=== PATIENT | male | born 1945 | race Caucasian/White ===

== ENCOUNTER 2016-11-07 10:49 | Observation (INO) | payer MEDICARE, MEDICAID ==
[2016-11-07 11:48] LABS: Hematocrit 39 % (42-52); Hemoglobin 13.3 g/dl (14.0-18.0); Mean Corpuscular HGB Conc 34 g/dl (31-36); Mean Corpuscular Hemoglobin 30 pg (27-31); Mean Corpuscular Volume 87 fL (80-94); Mean Platelet Volume 9 um3 (7.4-10.4); Red Cell Distribution Width 14 % (10.5-15); White Blood Count 8.5 10^3/ul (3.5-10.8)
--- NOTE | 2016-11-07 12:00 | RAD ---
HISTORY: Hypertension COMPARISONS: June 04, 2016 VIEWS:1: Single frontal portable view of the chest at 11:11 FINDINGS: LINES AND TUBES: None. CARDIOMEDIASTINAL SILHOUETTE: The cardiomediastinal silhouette is normal for portable technique. PLEURA: The costophrenic angles are sharp. No pleural abnormalities are noted. LUNG PARENCHYMA: The lungs are clear. ABDOMEN: The upper abdomen is clear. There is no subphrenic gas. BONES AND SOFT TISSUES: The patient is status post left shoulder arthroplasty IMPRESSION: NO ACTIVE CARDIOPULMONARY DISEASE.
[2016-11-07] MEDS ORDERED: oxyCODONE TAB* 5 MG TAB PO ONE (12:38)
[2016-11-07] MEDS ORDERED: NS 0.9% 1000 ML* 2,000 ML IV ONE (12:53)
[2016-11-07 12:57] LABS: Urine Bilirubin Negative (Negative); Urine Glucose Negative (Negative); Urine Nitrite Negative (Negative)
[2016-11-07 13:36] LABS: BUN/Creatinine Ratio 24.5 (8-20); Calcium 9.7 mg/dL (8.6-10.3); EGFR Non-African American 79.3 (>60); Globulin 2.3 g/dL (2-4); Potassium 3.9 mmol/L (3.5-5.0); Total Bilirubin 0.5 mg/dL (0.2-1.0); Total Protein 6.3 g/dL (6.4-8.9)
[2016-11-07 13:38] LABS: Troponin I 0.01 ng/mL (<0.04)
[2016-11-07] MEDS ORDERED: Iohexol 300* (CONTRAST) 10 ML SDV IV ONE (13:43)
--- NOTE | 2016-11-07 13:59 | RAD ---
HISTORY: disequilibrium COMPARISONS: MRI of the head dated August 04, 2004 TECHNIQUE: Multiple contiguous axial CT scans were obtained of the head without intravenous contrast. FINDINGS: HEMORRHAGE/INFARCT: There is no hemorrhage or acute infarct. MASSES/SHIFT: There is no mass or shift. EXTRA-AXIAL SPACES: There are no extra-axial fluid collections. SULCI AND VENTRICLES: The sulci and ventricles are normal in size and position for the patient's stated age. CEREBRUM: There are no focal parenchymal abnormalities. BRAINSTEM: There are no focal parenchymal abnormalities. CEREBELLUM: There are no focal parenchymal abnormalities. VESSELS: The vessels are grossly normal. PARANASAL SINUSES: The paranasal sinuses are clear. ORBITS: The orbits are unremarkable. BONES AND SOFT TISSUE: No bone or soft tissue abnormalities are noted. OTHER: None IMPRESSION: NO ACUTE INTRACRANIAL PATHOLOGY.
--- NOTE | 2016-11-07 14:15 | RAD ---
INDICATION: Left lower quadrant pain COMPARISON: CT abdomen June 15, 2016; CT abdomen and pelvis March 06, 2016 TECHNIQUE: Axial source images were obtained from the hemidiaphragms to the symphysis pubis following administration of oral and intravenous contrast. 80 mL Omnipaque 300 was utilized. Coronal and sagittal reconstructed images were acquired. Lung bases: The lung bases are clear. Liver: The liver is normal in size. There are no new masses. There are multiple, stable, hepatic hypodensities likely representing cysts. There is no ductal dilatation. Gallbladder: There are no calcified gallstones. There is no evidence of wall thickening or pericholecystic fluid. Spleen: The spleen is normal in size. There are no masses. Pancreas: There is no focal pancreatic mass or ductal dilatation. Adrenal glands: There are findings suggestive of bilateral adrenal hyperplasia. The appearance unchanged. Kidneys: The kidneys are normal in size and position. There are prompt nephrograms and there is prompt excretion bilaterally. There are bilateral parapelvic cysts. There is no evidence of nephrolithiasis. Adenopathy: There is no evidence of adenopathy by size criteria. Fluid collections: There are no free or localized fluid collections. Vessels:There are atherosclerotic changes involving the aorta and iliac vessels. There is no focal aneurysm. The IVC appears normal. GI tract: There are no CT abnormality upper GI tract. There is moderate stool throughout the colon. There is no evidence of acute inflammatory change. There is appendectomy by surgical history. Pelvic organs: The prostate is enlarged Bladder: There are no bladder masses. Abdominal and pelvic soft tissues: The extraperitoneal abdominal and pelvic soft tissues appear normal.. Osseous structures: There is degenerative spurring of the thoracolumbar spine with lumbar fusion at L4-L5. There is no acute bony change. Other: None IMPRESSION: 1. Suspect mild, bilateral adrenal hyperplasia, unchanged. 2. Parapelvic cysts. 3. Moderate retained stool 4. Prostatic enlargement. 5. Lumbar fusion L4-L5. Underlying osteoarthritis.
[2016-11-07] MEDS ORDERED: Ondansetron INJ* 2 MG/ML VIAL IV PRN (15:47)
[2016-11-07] MEDS ORDERED: Polyethylene Glycol 3350* 17 GM PACKET PO PRN (15:50)
[2016-11-07] MEDS ORDERED: Metoclopramide TAB* 10 MG PO PRN (15:50)
[2016-11-07] MEDS ORDERED: tiZANidine TAB* 2 MG PO PRN (15:50)
[2016-11-07] MEDS: NS 0.9% 1000 ML* 1,000 ML IV SCH (16:07)
[2016-11-07 16:32] LABS: C Reactive Protein 3.65 mg/L (< 5.00)
[2016-11-07 17:27] LABS: Erythrocyte Sed Rate 8 mm/Hr (0-40)
[2016-11-07] MEDS: oxyCODONE TAB* 5 MG TAB PO PRN ×2 (18:17→22:33)
[2016-11-07 20:14] LABS: Benzodiazepine Urine Screen None Detected (None Detect)
[2016-11-07] MEDS: Omeprazole CAP* 20 MG PO SCH (20:55)
[2016-11-07] MEDS: Heparin VIAL(*) 5000 UNITS/ML VIAL (FIVE THOUSAND) SUBCUT SCH (20:55)
[2016-11-07] MEDS ORDERED: ALPRAZolam TAB* 0.5 MG PO SCH (21:00)
[2016-11-08] MEDS ORDERED: Acetaminophen TAB* 325 MG PO PRN (00:07)
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
[2016-11-08] MEDS: NS 0.9% 1000 ML* 1,000 ML IV SCH (05:27)
[2016-11-08] MEDS: Omeprazole CAP* 20 MG PO SCH (07:42)
[2016-11-08] MEDS: oxyCODONE TAB* 5 MG TAB PO PRN (07:43)
[2016-11-08 08:53] VITALS: BP 132/76
[2016-11-08] MEDS ORDERED: Multivitamins/Minerals TAB PO SCH (09:00)
[2016-11-08] MEDS ORDERED: amLODIPine TAB* 5 MG PO SCH (09:00)
[2016-11-08] MEDS ORDERED: Diazepam TAB(*) 2 MG PO ONE (09:09)
[2016-11-08] MEDS: Heparin VIAL(*) 5000 UNITS/ML VIAL (FIVE THOUSAND) SUBCUT SCH (09:49)
--- NOTE | 2016-11-08 11:29 | RAD ---
HISTORY: History of melanoma, off balance COMPARISONS: August 04, 2004, CT of the head dated November 07, 2016, maxillofacial CT dated May 01, 2011 TECHNIQUE: The following sequences were obtained of the head: Sagittal T1-weighted images, axial T2-weighted images, axial FLAIR images, axial susceptibility weighted images, axial T1-weighted images. Additionally, axial diffusion-weighted images were obtained with calculated apparent diffusion coefficients. FINDINGS: HEMORRHAGE/INFARCT: There is no hemorrhage or acute infarct. MASSES/SHIFT: There is no mass or shift. EXTRA-AXIAL SPACES/MENINGES: There are no extra-axial fluid collections. SULCI AND VENTRICLES: The sulci and ventricles are normal in size and position for the patient's stated age. CEREBRUM: There are multiple scattered small foci of elevated T2/FLAIR signal within the periventricular and subcortical white matter. These have progressed when compared to 2004. There is a small focus of susceptibility artifact within the right parietal lobe. A similar small focus is noted in the left posterior temporal lobe BRAINSTEM: There are no focal parenchymal abnormalities. CEREBELLUM: There are no focal parenchymal abnormalities. The cerebellar tonsils are normal in size and position. SELLA: The sella is normal. PINEAL: The pineal region is clear. CP ANGLE/TEMPORAL BONES: The labyrinthine structures are grossly normal. VESSELS: Normal flow-voids are noted within the visualized vertebral vasculature. DIFFUSION ABNORMALITIES: There are no diffusion abnormalities. PARANASAL SINUSES/MASTOIDS: The paranasal sinuses are clear. There is a trace right mastoid effusion. There is high signal on T2 and FLAIR images within the right petrous apex. When compared to previous CT examinations, this appears to correspond to fluid within pneumatized petrous apical air cells. ORBITS: The orbits are unremarkable. BONES AND SOFT TISSUE: No bone or soft tissue abnormalities are noted. OTHER: None IMPRESSION: 1. THERE ARE MULTIPLE FOCI OF ELEVATED T2/FLAIR SIGNAL WITHIN THE PERIVENTRICULAR AND SUBCORTICAL WHITE MATTER. THESE HAVE PROGRESSED WHEN COMPARED TO THE 2004 EXAMINATION. THE DIFFERENTIAL INCLUDES CHRONIC SMALL VESSEL ISCHEMIA, WHITE MATTER CHANGES ASSOCIATED WITH MIGRAINE HEADACHE, AND THE SEQUELA OF PREVIOUS INFECTION OR INFLAMMATION. ALSO WITHIN THE DIFFERENTIAL ARE AREAS OF VASOGENIC EDEMA FROM SMALL METASTATIC FOCI, GIVEN THE HISTORY OF MALIGNANCY. CONSIDER FURTHER EVALUATION WITH POSTCONTRAST MRI WHICH MAY BE MORE SENSITIVE TO THE DETECTION OF SMALL PARENCHYMAL METASTASES. 2. THERE IS NO SPACE-OCCUPYING LESION OR SHIFT. 3. THERE IS A SMALL RIGHT MASTOID EFFUSION, WITH FLUID WITHIN PNEUMATIZED PETROUS APICAL AIR CELLS ON THE RIGHT. 4. SMALL FOCI OF SUSCEPTIBILITY ARTIFACT WHICH MAY REFLECT SMALL CAVERNOUS ANGIOMAS OR FOCI OF MICROHEMORRHAGE, WHICH CAN BE SEEN IN ASSOCIATION WITH CHRONIC HYPERTENSION.
--- NOTE | 2016-11-08 15:25 | PN ---
Subjective Date of Service: 11/08/16 Interval History: Pt is feeling ok. He states he has not had any further lightheadedness. He denies any pain. No SOB. He is discouraged that we have not found a cause for his weight loss. Objective Vital Signs 11/07/16 11/07/16 11/07/16 15:24 16:52 18:17 Temperature 98.1 F Pulse Rate 57 Respiratory 16 16 16 Rate Blood Pressure 154/82 (mmHg) O2 Sat by Pulse 99 Oximetry 11/07/16 11/07/16 11/07/16 20:00 20:12 20:15 Temperature 98.0 F 98 F Pulse Rate 71 78 Respiratory 18 18 Rate Blood Pressure 153/75 135/81 (mmHg) O2 Sat by Pulse 96 96 97 Oximetry 11/07/16 11/07/16 11/07/16 20:17 20:55 22:33 Temperature Pulse Rate Respiratory 16 16 16 Rate Blood Pressure (mmHg) O2 Sat by Pulse Oximetry 11/07/16 11/07/16 11/08/16 22:55 23:59 00:33 Temperature 98.1 F Pulse Rate 65 Respiratory 16 16 16 Rate Blood Pressure 127/74 (mmHg) O2 Sat by Pulse 97 Oximetry 11/08/16 11/08/16 11/08/16 04:12 07:31 07:43 Temperature 97.7 F 98.6 F Pulse Rate 60 70 Respiratory 16 20 20 Rate Blood Pressure 130/74 144/90 (mmHg) O2 Sat by Pulse 97 Oximetry 11/08/16 11/08/16 11/08/16 08:53 09:43 09:57 Temperature Pulse Rate 56 Respiratory 18 16 16 Rate Blood Pressure 132/76 (mmHg) O2 Sat by Pulse 97 Oximetry Oxygen Devices in Use Now: None Appearance: Elderly male sitting on the edge of the bed eating lunch in NAD Eyes: No Scleral Icterus Ears/Nose/Mouth/Throat: Mucous Membranes Moist Respiratory: Symmetrical Chest Expansion and Respiratory Effort, Clear to Auscultation Cardiovascular: NL Sounds; No Murmurs; No JVD, RRR, No Edema Abdominal: NL Sounds; No Tenderness; No Distention Extremities: No Clubbing, Cyanosis Skin: No Rash or Ulcers, No Nodules or Sclerosis Neurological: Alert and Oriented x 3 Result Diagrams: 11/07/16 11:20 11/07/16 11:20 Assess/Plan/Problems-Billing Mr Markham is a 71 yo M who has a h/o HTN, chronic pain and 25-30lb unexplained weight loss over the last 10 months presented to the ER with c/o hypotension at his PCPs office and had a near syncopal episode while checking into the ER. - Patient Problems (1) Near syncope Status: Acute Comment: The patient was mildly orthostatic. No significant arrhythmias on tele. I suspect his near syncope was likely orthostatic in nature. (2) Unexplained weight loss Status: Acute Code(s): R63.4 - ABNORMAL WEIGHT LOSS SNOMED Code(s): 083718969 Comment: The patient has lost 25-30lb over the last 10 months. He has had an extensive work up as an outpatient. He has a h/o melanoma and a feeling of being off balance therefore I obtained an MRI of the brain without contrast ( could not get contrasted scan as he had CT with contrast 11/07/16). The MRI revealed white matter changes that in the differential includes small areas of edema related to small metastases and a contrasted MRI is recommended. I suspect this is not the case and the patient would like to go home. I will contact his PCP to discuss these findings and ask that she order a contrasted MRI for next week. Additionally the patient had c/o extreme fatigue/exhuastion so I had a nocturnal desaturation study performed that revealed him to desat for 20 mins. I have set him up for nocturnal O2 but he should have a formal sleep study as an outpatient. (3) HTN (hypertension) Status: Acute Code(s): I10 - ESSENTIAL (PRIMARY) HYPERTENSION SNOMED Code(s) : 25004888 Comment: I have resumed the patient's usual meds except chlorthalidone which I have asked the patient to discontinue. BP has been under good control. (4) DVT prophylaxis Status: Acute Code(s): WYF9295 - SNOMED Code(s): 729184543 Comment: SQ heparin. (5) Full code status Status: Acute Code(s): Z78.9 - OTHER SPECIFIED HEALTH STATUS SNOMED Code(s) : 841287957 Status and Disposition: d/c home
--- NOTE | 2016-11-09 15:34 | DS ---
DISCHARGE SUMMARY: DATE OF ADMISSION: 11/07/16 DATE OF DISCHARGE: 11/08/15 PRIMARY CARE PROVIDER: NAYELI Valenzuela PRINCIPAL DIAGNOSES: 1. Near syncope. 2. Hypotension - resolved. 3. 25-to 30-pound unexplained weight loss. DISCHARGE MEDICATIONS: 1. Reglan 5 mg p.o. t.i.d. p.r.n. nausea. 2. Omeprazole 20 mg p.o. b.i.d. 3. Multivitamin 1 tab p.o. daily. 4. Amlodipine 10 mg p.o. daily. 5. Tizanidine 4 mg p.o. q.6 hours p.r.n. spasm. 6. Xanax 0.5 mg p.o. at bedtime. 7. EpiPen daily as needed for allergic reaction. 8. Probiotic 4 mg p.o. daily. 9. MiraLAX 17 g p.o. daily p.r.n. constipation. 10. Oxycodone 15 mg p.o. q.4 hours p.r.n. pain. HOSPITAL COURSE: Mr. Markham is a 71-year-old male sent to the emergency room from his primary care provider's office with complaints of hypotension. While the patient was walking from the far end of the parking lot to the check-in desk at the emergency room, the patient felt lightheaded. By the time he arrived at the check- in desk, he felt as if he might pass out. The patient lost his balance with that. The patient was admitted for evaluation of near syncope. His blood pressure, however, was noted to be completely normal during the course of his emergency room stay. The patient was, however, admitted for evaluation of the near syncope and unexplained weight loss. In terms of the near syncope, I suspect this is likely orthostatic. The patient was mildly orthostatic. He was hydrated with IV fluids. He was feeling better on the day of discharge. He has had no other further near syncopal episodes. In terms of the unexplained weight loss, the patient did relate a history of melanoma in the past. Given this and his complaints of being off balance intermittently, I decided to obtain an MRI. I wished to obtain an MRI with contrast; however, the patient had contrast for an abdominal pelvis CT. Because of this, the patient had to wait 48 hours for a contrasted MRI. The decision was made to do a noncontrasted MRI, which revealed multiple foci of elevated T2/FLAIR signal within the periventricular and subcortical white matter. These are progressed when compared to 2004 examination. The differential includes chronic small-vessel ischemia, white matter changes associated with migraine headache, and the sequela of previous infection or inflammation. Also within the differential are areas of vasogenic edema from small metastatic foci. The patient was recommended to have a contrasted MRI of the brain. As the patient was feeling improved and the likelihood that these represent metastases is low, the decision was made to discharge the patient to home. I will speak with the patient's primary care provider and inform her that an outpatient MRI with contrast needs to be ordered. Additionally, the patient was complaining of severe exhaustion. He states that he is incredibly tired and fatigued all the time. A nocturnal desaturation study was obtained and did reveal him to desaturate below 88% for part of the night. He was set up for nocturnal oxygen. The patient may benefit from an outpatient formal sleep study. Additionally, ESR and CRP were obtained and were within normal range. HIV testing was sent and negative and the bulk of his other lab work was negative. Additionally, I have recommended the patient have a good skin exam as he has not seen a cutter hot knife in approximately 5 years. FOLLOWUP CONCERNS: The patient is being discharged home today, 11/08/16. He is to follow up with NAYELI Valenzuela, in the next 4 to 7 days. ACTIVITY LEVEL: As tolerated. DIET: Regular. CONDITION ON DISCHARGE: Stable. TIME SPENT: Thirty-five minutes was spent discharging this patient. CC: NAYELI Valenzuela * [id number]/[facility] #: [id number] [facility]
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
== END 2016-11-08 13:23 | disposition home or self-care (01) ==
LOC: ED 10:49 → MEDTELE 13:22
PROVIDERS: ADMIT Hospitalist; ATTEND Hospitalist
DX: I95.9 Hypotension, unspecified (principal); R42 Dizziness and giddiness; R55 Syncope and collapse; R63.4 Abnormal weight loss; I10 Essential (primary) hypertension; G62.9 Polyneuropathy, unspecified; Z85.820 Personal history of malignant melanoma of skin; E27.8 Other specified disorders of adrenal gland; R00.1 Bradycardia, unspecified; Z79.899 Other long term (current) drug therapy
CPT/HCPCS: 36415; 70450; 70551; 71010; 74177; 80053; 80307; 81003; 83605; 84484; 85025; 85610; 85652; 85730; 86140; 86703; 87040; 93005; 94762; 96360; 96361; 99285; A9270-GY; G0378; J1644; Q9967

== ENCOUNTER 2016-11-20 10:45 | Day surgery (SDC) | payer MEDICARE, MEDICAID ==
[~2016-11-20 10:45] MED LIST: Cyclopentolate 1% OPTH.SOL* 2 ML BTL ONE; Flurbiprofen 0.03% OPTH.SOL* 2.5 ML BTL ONE; Lidocaine 1% MPF* 2 ML VIAL ONE; Neomycin/Polymy/Dex OPHTH.OIN* 3.5 GM ONE; Phenylephrine 2.5% OPTH.SOL* 2 ML BTL ONE; Tetracaine 0.5% OPTH.SOL 4 ML* 1 DROP BTL ONE; Tropicamide 1% OPTH.SOL* BTL ONE
[2016-11-20] MEDS ORDERED: fentaNYL* 50 MCG/ML 2 ML VIAL (100 MCG VIAL) ONE (12:53)
[2016-11-20] MEDS ORDERED: Propofol* 10 MG/ML 20 ML BTL IV PUSH ONE (12:54)
[2016-11-20 13:35] VITALS: BP 148/66
--- NOTE | 2016-11-21 03:41 | OP ---
DATE OF OPERATION: 11/20/16 [facility] DATE OF : 47 SURGEON: Arcihe Flores MD. HVAC MANAGER: None. ANESTHESIOLOGIST: Davion Gallegos DO ANESTHESIA: Topical with intravenous sedation. PRE-OP DIAGNOSIS: Cataract, right eye. POST-OP DIAGNOSIS: Cataract, right eye. OPERATIVE PROCEDURE: Phacoemulsification and cataract extraction with posterior chamber intraocular lens implant, right eye. COMPLICATIONS: None. BLOOD LOSS: None. DESCRIPTION OF PROCEDURE: The patient was brought to the operating room and received a small amount of intravenous sedation. A drop of Tetracaine was placed in his right eye. He was prepped and draped in the usual sterile fashion for ophthalmic surgery and attention was directed to the right eye where a speculum was placed. A paracentesis was created at the 11 o'clock position and 0.1 cc of 1 percent preservative-free Lidocaine was injected into the anterior chamber followed by DisCoVisc. The eye was digitally stabilized while a 2.75 mm keratome was used to create a triplanar clear corneal incision at the 9 o'clock position. A continuous curvilinear capsulorrhexis was created with a cystotome and Utrata forceps. BSS on a cannula was used to hydrodissect the lens from the capsule. Phacoemulsification was performed in a divide-and- conquer technique to create four fragments which were removed. Residual cortical material was removed with irrigation and aspiration. DisCoVisc was used to inflate the capsular bag and an SN60AT 17.5 diopter lens was folded and inserted into the capsular bag. DisCoVisc was removed using irrigation and aspiration. BSS on a cannula was used to hydrate the corneal stroma and seal the wound. At the end of the case the pupil was round and the lens was centered. The eye was of normal pressure and the wound was water tight. The speculum was removed and topical Maxitrol ointment was placed on the surface of the eye. The eye was closed, patched and shielded and the patient was sent to the recovery room in stable condition with post operative instructions and follow-up appointment given. [id number] #: [id number] MTDD
== END 2016-11-20 13:29 | disposition home or self-care (01) ==
LOC: OREAST 10:45
PROVIDERS: ATTEND Ophthalmology
DX: H25.11 Age-related nuclear cataract, right eye (principal); I10 Essential (primary) hypertension
CPT/HCPCS: A9270-GY; J2704; J3010; V2632

== ENCOUNTER 2016-11-27 09:44 | Day surgery (SDC) | payer MEDICARE, MEDICAID ==
[~2016-11-27 09:44] MED LIST changes: +Buffered Lidocaine 1% SYR 3ML* 3 ML/SYR SYRINGE INTRADERM ONE; -Cyclopentolate 1% OPTH.SOL* 2 ML BTL ONE; -Flurbiprofen 0.03% OPTH.SOL* 2.5 ML BTL ONE; -Lidocaine 1% MPF* 2 ML VIAL ONE; -Neomycin/Polymy/Dex OPHTH.OIN* 3.5 GM ONE; -Phenylephrine 2.5% OPTH.SOL* 2 ML BTL ONE; -Tetracaine 0.5% OPTH.SOL 4 ML* 1 DROP BTL ONE; -Tropicamide 1% OPTH.SOL* BTL ONE
[2016-11-27] MEDS ORDERED: fentaNYL* 50 MCG/ML 2 ML VIAL (100 MCG VIAL) ONE (11:57)
[2016-11-27] MEDS ORDERED: Lidocaine 2% PF * 5 ML VIAL ONE (11:58)
[2016-11-27] MEDS ORDERED: Propofol* 10 MG/ML 20 ML BTL IV PUSH ONE (11:58)
[2016-11-27 12:35] VITALS: BP 135/81
[2016-11-27] MEDS ORDERED: Cyclopentolate 1% OPTH.SOL* 2 ML BTL ONE (13:39)
[2016-11-27] MEDS ORDERED: Tetracaine 0.5% OPTH.SOL 4 ML* 1 DROP BTL ONE (13:39)
[2016-11-27] MEDS ORDERED: Neomycin/Polymy/Dex OPHTH.OIN* 3.5 GM ONE (13:39)
[2016-11-27] MEDS ORDERED: Tropicamide 1% OPTH.SOL* BTL ONE (13:39)
[2016-11-27] MEDS ORDERED: Lidocaine 1% MPF* 2 ML VIAL ONE (13:39)
[2016-11-27] MEDS ORDERED: Phenylephrine 2.5% OPTH.SOL* 2 ML BTL ONE (13:39)
[2016-11-27] MEDS ORDERED: Flurbiprofen 0.03% OPTH.SOL* 2.5 ML BTL ONE (13:39)
--- NOTE | 2016-11-28 04:58 | OP ---
DATE OF OPERATION: 11/27/16 [facility] DATE OF : 47 SURGEON: Dr. Archie Flores. DENIER CONTROL OPERATOR: None. ANESTHESIOLOGIST: Davion Gallegos DO ANESTHESIA: Topical with intravenous sedation. PRE-OP DIAGNOSIS: Cataract, left eye. POST-OP DIAGNOSIS: Cataract, left eye. OPERATIVE PROCEDURE: Phacoemulsification and cataract extraction with posterior chamber intraocular lens implant, left eye. COMPLICATIONS: None. BLOOD LOSS: None. DESCRIPTION OF PROCEDURE: The patient was brought to the operating room and received a small amount of intravenous sedation. A drop of Tetracaine was placed in his left eye. He was prepped and draped in the usual sterile fashion for ophthalmic surgery and attention was directed to the left eye where a speculum was placed. A paracentesis was created at the 5 o'clock position and 0.1 cc of 1 percent preservative-free lidocaine was injected into the anterior chamber followed by DisCoVisc. The eye was digitally stabilized while a 2.75 mm keratome was used to create a triplanar clear corneal incision at the 3 o'clock position. A continuous curvilinear capsulorrhexis was created with a cystotome and Utrata forceps. BSS on a cannula was used to hydrodissect the lens from the capsule. Phacoemulsification was performed in a [id number] technique to create four fragments which were removed. Residual cortical material was removed with irrigation and aspiration. DisCoVisc was used to inflate the capsular bag and an SN60WF 16.5 diopter lens was folded and inserted into the capsular bag. DisCoVisc was removed using irrigation and aspiration. BSS on a cannula was used to hydrate the corneal stroma and seal the wound. At the end of the case the pupil was round and the lens was centered. The eye was of normal pressure and the wound was water tight. The speculum was removed and topical Maxitrol ointment was placed on the surface of the eye. The eye was closed, patched and shielded and the patient was sent to the recovery room in stable condition with post operative instructions and follow-up appointment given. [id number]/CPS #: [id number] MTDD
== END 2016-11-27 12:43 | disposition home or self-care (01) ==
LOC: OREAST 09:44
PROVIDERS: ATTEND Ophthalmology
DX: H25.12 Age-related nuclear cataract, left eye (principal); I10 Essential (primary) hypertension
CPT/HCPCS: A9270-GY; J2704; J3010; V2632

== ENCOUNTER 2017-03-01 12:36 | Emergency (ER) | payer MEDICARE, MEDICAID ==
[2017-03-01 12:49] VITALS: BP 166/52
== END 2017-03-01 15:03 | disposition left against medical advice (07) ==
LOC: ED 12:36
DX: R42 Dizziness and giddiness (principal); R53.1 Weakness; Z53.21 Procedure and treatment not carried out due to patient leaving prior to being seen by health care provider

== ENCOUNTER → 2017-11-19 12:00 | Emergency (ER) | payer MEDICARE, MEDICAID ==
[2017-11-19 12:05] VITALS: BP 147/98
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
[2017-11-19 15:29] LABS: Hematocrit 43 % (42-52); Hemoglobin 14.9 g/dl (14.0-18.0); Mean Corpuscular HGB Conc 34 g/dl (31-36); Mean Corpuscular Hemoglobin 30 pg (27-31); Mean Corpuscular Volume 87 fL (80-94); Mean Platelet Volume 9 um3 (7.4-10.4); Platelet Count 205 10^3/ul (150-450); Red Blood Count 4.98 10^6/ul (4.0-5.4); Red Cell Distribution Width 14 % (10.5-15); White Blood Count 8.6 10^3/ul (3.5-10.8)
[2017-11-19 16:03] LABS: EGFR Non-African American 96.7 (>60)
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
== END ==
LOC: ED 12:00
DX: R10.9 Unspecified abdominal pain (principal); K59.00 Constipation, unspecified
CPT/HCPCS: 36415; 74018; 80053; 83605; 85027; 85652; 86140; 99282

== ENCOUNTER → 2018-01-09 11:26 | Emergency (ER) | payer MEDICARE, MEDICAID ==
[2018-01-09 12:07] LABS: ABS Basophils 0 10^3/ul (0-0.2); ABS Eosinophils 0.1 10^3/ul (0-0.6); ABS Lymphocytes 1.4 10^3/ul (1.0-4.8); ABS Monocytes 0.5 10^3/ul (0-0.8); ABS Nucleated RBC 0 10^3/ul; Eosinophil % 1.7 % (0-6); Hematocrit 42 % (42-52); Hemoglobin 14.2 g/dl (14.0-18.0); Lymphocyte % 22.7 % (25-47); Mean Corpuscular HGB Conc 34 g/dl (31-36); Mean Corpuscular Hemoglobin 30 pg (27-31); Mean Corpuscular Volume 88 fL (80-94); Mean Platelet Volume 8.6 um3 (7.4-10.4); Nucleated Red Blood Cells % 0.1; Platelet Count 196 10^3/ul (150-450); Red Blood Count 4.72 10^6/ul (4.0-5.4); Red Cell Distribution Width 14 % (10.5-15)
[2018-01-09 12:28] VITALS: BP 167/93
[2018-01-09 12:33] LABS: EGFR Non-African American 83.2 (>60)
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
== END | disposition home or self-care (01) ==
LOC: ED 11:26
DX: F43.20 Adjustment disorder, unspecified (principal); I10 Essential (primary) hypertension; K21.9 Gastro-esophageal reflux disease without esophagitis; F41.9 Anxiety disorder, unspecified; F32.9 Major depressive disorder, single episode, unspecified; C43.9 Malignant melanoma of skin, unspecified
CPT/HCPCS: 36415; 80053; 80320; 80329; 84443; 85025; 99283; G0480

== ENCOUNTER 2018-01-09 13:55 | Emergency (ER) | payer MEDICARE, MEDICAID ==
[2018-01-09 14:26] VITALS: BP 142/84
== END 2018-01-09 14:13 | disposition home or self-care (01) ==
LOC: ED 13:55
DX: Z00.8 Encounter for other general examination (principal); Z53.21 Procedure and treatment not carried out due to patient leaving prior to being seen by health care provider

== ENCOUNTER 2018-02-05 12:34 | Emergency (ER) | payer MEDICARE, MEDICAID ==
[2018-02-05 12:40] VITALS: BP 154/101
== END 2018-02-05 15:04 | disposition left against medical advice (07) ==
LOC: ED 12:34
DX: K59.00 Constipation, unspecified (principal); Z53.21 Procedure and treatment not carried out due to patient leaving prior to being seen by health care provider

== ENCOUNTER 2018-02-05 19:10 | Emergency (ER) | payer MEDICARE, MEDICAID ==
[2018-02-05] MEDS ORDERED: Lidocaine 4% GEL* 10 GM TUBE TOPICAL ONE (19:35)
--- NOTE | 2018-02-05 19:38 | RAD ---
INDICATION: Constipation COMPARISON: November 19, 2017 TECHNIQUE: A single view of the abdomen is submitted. FINDINGS: Bones: There are no acute bony findings. There is prior lumbar fusion Soft tissues: There is a small amount of shrapnel projecting over the left hemipelvis. The psoas margins are sharp. Bowel gas pattern: No obstruction. There is moderate stool, however Calcifications: There are no abnormal calcifications. Other: None IMPRESSION: MODERATE RETAINED STOOL.
[2018-02-05] MEDS ORDERED: Lidocaine 2% JELLY* 6 ML JELLY TOPICAL ONE (19:40)
[2018-02-05 20:26] VITALS: BP 159/88
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
== END 2018-02-05 20:25 | disposition home or self-care (01) ==
LOC: ED 19:10
DX: K59.00 Constipation, unspecified (principal); F11.20 Opioid dependence, uncomplicated; R10.84 Generalized abdominal pain; Z88.8 Allergy status to other drugs, medicaments and biological substances
CPT/HCPCS: 74018; 99283

== ENCOUNTER 2019-06-14 19:05 | Emergency (ER) | payer MEDICARE, MEDICAID ==
[2019-06-14 19:16] VITALS: BP 122/75
--- OUTSIDE RECORDS SUMMARY | 2019-06-14 19:20 | XMS REPORT | Continuity of Care Document ---
:1945 External Reference #:[id number] Author Name Johnny Magdaleno DO FACC (transmitted by agent of provider Amena Kebede) Address [address] [place] [id number] Care Team Providers Name Role Phone Chelsea Carvajal MD - Family Care Team Information [facility] [facility] Charles Johnson M.D. - Care Team Information [employer] [phone] Gastroenterology Problems Active Problems Provider Date Essential hypertension Johnny Magdaleno DO FACC Onset: 01/17/2017 Amnesia Rian Messina M.D. Onset: 05/03/2017 Idiopathic progressive polyneuropathy Rian Messina M.D. Onset: 2016 Strain of rotator cuff capsule Morales Linares MD Onset: 11/20/2018 Localized, primary osteoarthritis of the Morales Linares MD Onset: 2018 shoulder region Social History Type Date Description Comments Sex Unknown Tobacco Use Start: Unknown Never Smoked Cigarettes Smoking Status Reviewed: 05/21/19 Never Smoked Cigarettes ETOH Use Occasionally consumes beer Recreational Drug Use Formerly used Cocaine regularly Tobacco Use Start: Unknown Patient has never smoked Recreational Drug Use Formerly used Marijuana currently uses regularly Exercise Type/Frequency Does not exercise Allergies, Adverse Reactions, Alerts Active Allergies Reaction Severity Comments Date Trazodone 11/08/2016 Lyrica 11/08/2016 Medications Active Medications SIG Qnty Indications Ordering Date Provider Atenolol 1 by mouth every 90tabs I48.0 Johnny Silver 05/21/2019 25mg Tablets day Magdaleno, DO FACC Amlodipine Besylate 1 by mouth every 90tabs Johnny Silver 05/21/2019 day Magdaleno, DO FACC 10mg Tablets Movantik 1 tab before bed Unknown 25mg Tablets Metoclopramide HCL take 1 tablet by Unknown 5mg mouth 2 times a day Tablets Mirtazapine take one tablet by Unknown 30mg mouth at bedtime Tablets Xarelto 1 by mouth every 90tabs Johnny Silver 20mg Tablets day Magdaleno, DO [facility] Ensure Complete patient can have 3 Unknown Nutrition Shake - 4 cans per day - Liquid she may ask for this herself. Docusate Sodium 1 tab every 12 Unknown 100mg hours as needed for Capsules constipation Simvastatin take 1 tablet by Unknown 10mg mouth at bedtime Tablets Imipramine HCL 1 @hs for a week Unknown 25mg Tablets Vitamin D3 Super 2 by mouth every Unknown Strength day 2000Unit Capsules Tamsulosin HCL 1 by mouth every Unknown 0.4mg day Capsules Magnesium Oxide -MG As directed Unknown Supplement 400mg Omeprazole 1 by mouth twice Unknown 20mg daily Capsules DR Multivitamin Adult 1 by mouth every Unknown day Tablets Alprazolam 1 tabs by mouth at Unknown 1mg Tablets bedtime Epipen 2-Kranthi use as directed Unknown 0.3mg/0.3ML Solution Auto-Inject Miralax 17 gm every day as Unknown 3350NF Packet needed History Medications Metoprolol 1 by mouth every 30tabs I48.0 Johnny Magdaleno, 04/30/2019 - Succinate ER day DO [facility] 05/21/2019 25mg Tablets ER 24HR Amlodipine Besylate 1 by mouth every 90tabs Johnny Magdaleno, 04/28/2019 - day DO [facility] 05/21/2019 5mg Tablets Medrol take medrol dose 1tabs Morales Carney 02/19/2019 - 4mg Tablets pack as directed MD Milagros 04/29/2019 Medications Administered in Office Medication SIG Qnty Indications Ordering Provider Date Depomedrol 40MG Morales Linares MD 11/20/2018 Injection Depomedrol 40MG Morales Linares MD 11/20/2018 Injection Immunizations Description No Information Available Vital Signs Date Vital Result Comment 05/21/2019 9:23am Height 67 inches 5'7" Weight 148.00 lb Heart Rate 66 /min BP Systolic Sitting 142 mmHg Rue reg cuff BP Diastolic Sitting 100 mmHg Rue reg cuff BP Systolic Standing 142 mmHg Rue reg cuff BP Diastolic Standing 90 mmHg Rue reg cuff Respiratory Rate 12 /min BMI (Body Mass Index) 23.2 kg/m2 Ejection Fraction 60% 04/30/2019 9:25am Height 67 inches 5'7" Weight 139.00 lb with shoes Heart Rate 80 /min irreg BP Systolic Sitting 112 mmHg lue reg cuff BP Diastolic Sitting 78 mmHg lue reg cuff BP Systolic Standing 124 mmHg lue reg cuff BP Diastolic Standing 78 mmHg lue reg cuff Respiratory Rate 14 /min BMI (Body Mass Index) 21.8 kg/m2 Ejection Fraction 60% echo. 08/08/2011 Results Description No Information Available Procedures Date Code Description Status 05/21/2019 79988 EKG Tracing & Interpretation Completed 05/04/2019 63659 Moderate Sedation Services; Same Phys Intl 15 Mins; PT >= Completed 5 Years 05/04/2019 33229 Color Flow Doppler/Interp & Reprt Completed 05/04/2019 11774 Pulse Wave/Continuous-Interp.RPT Completed 05/04/2019 73500 Echocardiography, Transesophageal, Real Time W/Image 2D Completed W/W/O M-M 05/04/2019 62352 Cardioversion Completed 04/30/2019 71462 EKG Tracing & Interpretation Completed Medical Devices Description No Information Available Encounters Type Date Location Provider Dx Diagnosis Office Visit 04/30/2019 [facility] Johnny Magdaleno, I48.91 Unspecified atrial 9:30a Of Automatic Transmission Mechanic DO FACC fibrillation I10 Essential (primary) hypertension I11.9 Hypertensive heart disease without heart failure Office Visit 02/19/2019 [facility] Morales Carney M19.011 Primary 11:15a Services Of MD Milagros osteoarthritis, C.M.A. right shoulder S46.011A Strain of musc/tend the rotator cuff of right shoulder, init Office Visit 12/18/2018 11:00a Orthopedic Morales Carney S46.011A Strain of Services Of MD Milagros musc/tend the C.M.A. rotator cuff of right shoulder, init M19.011 Primary osteoarthritis, right shoulder Assessments Date Code Description Provider 05/21/2019 I48.0 Paroxysmal atrial fibrillation Johnny Magdaleno, DO FAC 05/21/2019 I10 Essential (primary) hypertension Johnny Nadeem Magdaleno, DO FAC 05/04/2019 I48.91 Unspecified atrial fibrillation Johnny SBritton Magdaleno, DO FACC 04/30/2019 I48.91 Unspecified atrial fibrillation Johnny SBritton Magdaleno, DO FACC 04/30/2019 I10 Essential (primary) hypertension Johnny SBritton Magdaleno, DO FACC 04/30/2019 I11.9 Hypertensive heart disease without heart Johnny Magdaleno DO FAC failure 02/19/2019 M19.011 Primary osteoarthritis, right shoulder Morales Linares MD 02/19/2019 S46.011A Strain of muscle(s) and tendon(s) of the Morales Linares MD rotator cuff of [facility] 12/18/2018 S46.011A Strain of muscle(s) and tendon(s) of the Morales Linares MD rotator cuff of [facility] 12/18/2018 M19.011 Primary osteoarthritis, right shoulder Morales Linares MD Plan of Treatment Future Appointment(s):08/25/2019 9:40 am - Johnny Magdaleno DO [facility] at [facility]05/21/2019 - [facility] Paroxysmal atrial fibrillationNew Medication:Atenolol 25 mg - 1 by mouth every dayComments:Stop taking metoprolol and start taking atenolol instead. See if that helps with energy. Your bloodpressure is too high. Increase amlodipine from 5 to 10 mg once a day. I sent a new prescription [facility]. If you get bothersome leg swelling let us know.Follow up:f/u 3 months with [facility]10 Essential (primary) hypertension Functional Status Description No Information Available Mental Status Description No Information Available Referrals Description No Information Available
--- OUTSIDE RECORDS SUMMARY | 2019-06-14 19:20 | XMS REPORT | Continuity of Care Document ---
:1945 External Reference #:[id number] Author Name Brandon Duron M.D., 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 - Care Team Information Wallpaperer [phone] Gastroenterology Problems Active Problems Provider Date Essential [...] Unknown Never Smoked Cigarettes Smoking Status Reviewed: 04/30/19 Never Smoked Cigarettes ETOH Use Occasionally consumes beer Recreational Drug Use Formerly used Cocaine regularly Tobacco Use Start: Unknown Patient has never smoked Recreational Drug Use Formerly used Marijuana currently uses regularly Exercise Type/Frequency Does not exercise Allergies, Adverse Reactions, Alerts Active Allergies Reaction Severity Comments Date Trazodone 11/08/2016 Lyrica 11/08/2016 Medications Active Medications SIG Qnty Indications Ordering Date Provider Metoprolol Succinate 1 by mouth every 30tabs I48.91 Johnny Silver 04/30/2019 ER day Magdaleno, DO FACC 25mg Tablets ER 24HR Amlodipine Besylate 1 by mouth every 90tabs Johnny Silver 04/28/2019 5mg day Magdaleno, DO FACC Tablets Movantik 1 tab before bed Unknown 25mg Tablets Metoclopramide HCL take 1 tablet by Unknown 5mg mouth 2 times a day Tablets Mirtazapine take one tablet by Unknown 30mg mouth at bedtime Tablets Xarelto 1 by mouth every Unknown 20mg Tablets day Ensure Complete patient can have 3 Unknown [...] as Unknown 3350NF Packet needed History Medications Medrol take medrol dose 1tabs Morales Linares, 02/19/2019 - 4mg pack as directed 04/29/2019 Tablets Medications Administered in Office Medication SIG Qnty Indications Ordering Provider Date Depomedrol 40MG Morales Linares MD 11/20/2018 Injection Depomedrol 40MG Morales Linares MD 11/20/2018 Injection Immunizations Description No Information Available Vital Signs Date Vital Result Comment 04/30/2019 9:25am Height 67 inches 5'7" Weight 139.00 lb with shoes Heart Rate 80 /min irreg BP Systolic Sitting 112 mmHg lue reg cuff BP Diastolic Sitting 78 mmHg lue reg cuff BP Systolic Standing 124 mmHg lue reg cuff BP Diastolic Standing 78 mmHg lue reg cuff Respiratory Rate 14 /min BMI (Body Mass Index) 21.8 kg/m2 Ejection Fraction 60% echo. 08/08/2011 02/19/2019 11:17am Height 67 inches 5'7" Weight 130.00 lb Heart Rate 64 /min BP Systolic 118 mmHg BP Diastolic 80 mmHg Respiratory Rate 18 /min Pain Level 5 BMI (Body Mass Index) 20.4 kg/m2 Results Description No Information Available Procedures Date Code Description Status 05/04/2019 68955 Moderate Sedation Services; Same Phys Intl 15 Mins; PT >= Completed 5 Years 05/04/2019 34335 Color Flow Doppler/Interp & Reprt Completed 05/04/2019 97641 Pulse Wave/Continuous-Interp.RPT Completed 05/04/2019 53319 Echocardiography, Transesophageal, Real Time W/Image 2D Completed W/W/O M-M 05/04/2019 12729 Cardioversion Completed 04/30/2019 49892 EKG Tracing & Interpretation Completed 11/20/2018 55311 Inject/Drain Joint/Bursa Major W/O US Completed 11/20/2018 64899 Inject/Drain Joint/Bursa Intermediate W/O US Completed Medical Devices Description No Information Available Encounters Type Date Location Provider Dx Diagnosis Office Visit 04/30/2019 [facility] Johnny Magdaleno, I48.91 Unspecified atrial 9:30a Of [facility] DO FACC fibrillation I10 Essential (primary) hypertension I11.9 Hypertensive heart disease without heart failure Office Visit 02/19/2019 Orth[facility] Morales Carney M19.011 Primary 11:15a Services Of MD Milagros osteoarthritis, C.M.A. right shoulder S46.011A Strain of marino/tend the rotator cuff of right shoulder, init Office Visit 12/18/2018 11:00a Orthopedic Morales Carney S46.011A Strain of Services Of MD marino Linares/tend the C.M.A. rotator cuff of right shoulder, init M19.011 Primary osteoarthritis, right shoulder Office Visit 11/20/2018 9:00a Orthopedic Morales Carney S46.011A Strain of Services Of MD marino Linares/tend the C.M.A. rotator cuff of right shoulder, init M19.011 Primary osteoarthritis, right shoulder Assessments Date Code Description Provider 05/04/2019 I48.91 Unspecified atrial fibrillation Johnyn Magdaleno DO FACC 04/30/2019 I48.91 Unspecified atrial fibrillation Johnny Magdaleno DO [facility] 04/30/2019 I10 Essential (primary) hypertension Johnny Magdaleno DO FAC 04/30/2019 I11.9 Hypertensive heart disease without heart Johnny Magdaleno DO [facility] failure 02/19/2019 M19.011 Primary osteoarthritis, right shoulder Morales Linares MD 02/19/2019 S46.011A Strain of muscle(s) and tendon(s) of the Morales Linares MD rotator cuff of rig 12/18/2018 S46.011A Strain of muscle(s) and tendon(s) of the Morales Linares MD rotator cuff of rig 12/18/2018 M19.011 Primary osteoarthritis, right shoulder Morales Linares MD 11/20/2018 S46.011A Strain of muscle(s) and tendon(s) of the Morales Linares MD rotator cuff of rig 11/20/2018 M19.011 Primary osteoarthritis, right shoulder Morales Linares MD Plan of Treatment 04/30/2019 - Johnny Magdaleno DO FACCI48.91 Unspecified atrial fibrillationNew Medication:Metoprolol Succinate ER 25 mg - 1 by mouth every dayNew Orders: Cardioversion, Ordered: 04/30/19Comments:Make sure you take xarelto the day of the cardioversion. Try taking metoprolol to slow the heart rate down and see if that helps at all with symptoms.As we discussed, we are going to try a cardioversion to restore normal sinus rhythm and see if that resolves your symptoms.Follow up:Schedule cardioversion Saturday05/04/2019 Follow up 3 weeks with EKGI10 Essential (primary) [id number] Hypertensive heart disease without heart failure Functional Status Description No Information Available Mental Status Description No Information Available Referrals Description No Information Available
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
[2019-06-14 19:58] LABS: ABS Basophils 0.1 10^3/ul (0-0.2); ABS Eosinophils 0.4 10^3/ul (0-0.6); ABS Lymphocytes 1.9 10^3/ul (1.0-4.8); ABS Neutrophils 7.2 10^3/ul (1.5-7.7); Eosinophil % 3.4 %; Hematocrit 43 % (42-52); Hemoglobin 14.6 g/dL (14.0-18.0); Mean Corpuscular HGB Conc 34 g/dL (31-36); Mean Corpuscular Hemoglobin 30 pg (27-31); Mean Corpuscular Volume 90 fL (80-94); Mean Platelet Volume 7.6 fL (7.4-10.4); Platelet Count 281 10^3/uL (150-450); Red Blood Count 4.79 10^6 /uL (4.18-5.48); Red Cell Distribution Width 14 % (10-15); White Blood Count 10.6 10^3/uL (3.5-10.8)
[2019-06-14 20:03] LABS: INR 1.45 (0.82-1.09)
[2019-06-14 20:15] LABS: Albumin 4.2 g/dL (3.2-5.2); Albumin/Globulin Ratio 1.7 (1-3); BUN/Creatinine Ratio 17.5 (8-20); Calcium 9.3 mg/dL (8.6-10.3); EGFR African American 85.7 (>60); EGFR Non-African American 70.8 (>60); Globulin 2.5 g/dL (2-4); Magnesium 2.2 mg/dL (1.9-2.7); Potassium 3.9 mmol/L (3.5-5.0); Total Bilirubin 0.4 mg/dL (0.2-1.0); Total Protein 6.7 g/dL (6.4-8.9)
[2019-06-14 20:18] LABS: Troponin I 0.01 ng/mL (<0.04)
[2019-06-14 20:43] LABS: TSH (Thyroid Stimulating Horm) 0.97 mcIU/mL (0.34-5.60)
[2019-06-15 12:49] LABS: Uric Acid 5.2 mg/dL (4.4-7.6)
--- NOTE | 2019-06-17 07:50 | PN ---
Progress Note - Progress Note Date of Service: 06/15/19 Note: Lyme screen test positive Pt left without being seen (LWBS) Sent for confirmatory testing Pt was not c/o sxs related to lyme
--- NOTE | 2019-06-19 08:33 | PN ---
Progress Note - Progress Note Date of Service: 06/14/19 Note: Lyme WB test positive for IGG antibodies with no IGM antibodies indicating no recent or current infection Will not treat at this time as pt was asymptomatic of Lyme symptoms
== END 2019-06-14 22:14 | disposition left against medical advice (07) ==
LOC: ED 19:05
DX: R60.9 Edema, unspecified (principal); Z53.21 Procedure and treatment not carried out due to patient leaving prior to being seen by health care provider
CPT/HCPCS: 36415; 71045; 80053; 83605; 83735; 83880; 84443; 84484; 84550; 85025; 85610; 86617; 86618; 99282

== ENCOUNTER 2020-07-26 16:33 | Inpatient (IN) ==
[2020-07-26] MEDS ORDERED: NS 0.9% 1000 ml BAG 1,000 ML IV ONE (17:09)
[2020-07-26 18:28] LABS: Hematocrit 53 % (42-52); Hemoglobin 18.1 g/dL (14.0-18.0); Mean Corpuscular HGB Conc 34 g/dL (31-36); Mean Corpuscular Hemoglobin 31 pg (27-31); Mean Corpuscular Volume 89 fL (80-94); Mean Platelet Volume 9.7 fL (7.4-10.4); Platelet Count 184 10^3/uL (150-450); Red Blood Count 5.93 10^6 /uL (4.18-5.48); Red Cell Distribution Width 14 % (10-15); White Blood Count 6.2 10^3/uL (3.5-10.8)
[2020-07-26 18:38] LABS: INR 1.3 (0.82-1.09)
[2020-07-26 18:55] LABS: Troponin I 0.03 ng/mL (<0.03)
[2020-07-26 18:59] LABS: ABS Lymphocytes 0.8 10^3/ul (1.0-4.8); ABS Monocytes 0.6 10^3/ul (0-0.8); ABS Neutrophils 4.7 10^3/ul (1.5-7.7); Lymphocyte % 13.1 %; Nucleated Red Blood Cells % 0.1
[2020-07-26 19:22] LABS: ALT 9 U/L (7-52); AST 21 U/L (13-39); Albumin 4.6 g/dL (3.2-5.2); Albumin/Globulin Ratio 1.5 (1-3); Alkaline Phosphatase 89 U/L (34-104); Anion Gap 11 mmol/L (2-11); Blood Urea Nitrogen 28 mg/dL (6-24); CO2 Carbon Dioxide 25 mmol/L (22-32); Calcium 9.7 mg/dL (8.6-10.3); Chloride 97 mmol/L (101-111); EGFR African American 67.1 (>60); EGFR Non-African American 55.4 (>60); Globulin 3.1 g/dL (2-4); Glucose 108 mg/dL (70-100); Potassium 3.9 mmol/L (3.5-5.0); Sodium 133 mmol/L (135-145); Total Protein 7.7 g/dL (6.4-8.9)
[2020-07-26] MEDS ORDERED: Remdesivir 5 MG/ML LIQ IV Vial 200 MG in NS 0.9% 250 ml 210 ML IV ONE (20:22)
[2020-07-26] MEDS ORDERED: Ondansetron 4 mg VIAL 2 MG/ML 2 ml VIAL IV PRN (21:45)
[2020-07-26] MEDS ORDERED: Polyethylene Glycol 3350 17 GM PACKET PO PRN (22:44)
[2020-07-26 23:36] LABS: LDH 240 U/L (140-271)
[2020-07-26 23:56] LABS: Ferritin 290.3 ng/mL (24-336)
[2020-07-27] MEDS: NALOXEGOL 25 MG PO SCH ×2 (00:05→21:19)
[2020-07-27] MEDS: IMIPRAMINE 25 MG PO SCH ×2 (00:10→21:18)
[2020-07-27 00:42] LABS: Erythrocyte Sed Rate 8 mm/Hr (0-19)
[2020-07-27] MEDS ORDERED: Metoprolol Tartrate 5 mg VIAL 5 ml VIAL (1 mg/ml) IV PRN (00:51)
[2020-07-27 01:45] LABS: C Reactive Protein 32.42 mg/L (<8.01); Creatine Kinase 27 U/L (10-223)
[2020-07-27 07:02] LABS: ABS Lymphocytes 0.7 10^3/ul (1.0-4.8); ABS Monocytes 0.4 10^3/ul (0-0.8); ABS Neutrophils 3.7 10^3/ul (1.5-7.7); Eosinophil % 0.1 %; Hematocrit 44 % (42-52); Lymphocyte % 14.2 %; Mean Corpuscular HGB Conc 34 g/dL (31-36); Mean Corpuscular Hemoglobin 30 pg (27-31); Mean Corpuscular Volume 88 fL (80-94); Mean Platelet Volume 10.1 fL (7.4-10.4); Nucleated Red Blood Cells % 0.1; Platelet Count 153 10^3/uL (150-450); Red Blood Count 4.97 10^6 /uL (4.18-5.48); Red Cell Distribution Width 13 % (10-15); White Blood Count 4.7 10^3/uL (3.5-10.8)
[2020-07-27 07:37] LABS: BUN/Creatinine Ratio 28.6 (8-20); Calcium 8.4 mg/dL (8.6-10.3); EGFR African American 83.5 (>60); Potassium 3.8 mmol/L (3.5-5.0)
[2020-07-27 07:44] LABS: Troponin I 0.03 ng/mL (<0.03)
[2020-07-27] MEDS: CMCS: Simvastatin 10 mg TAB (NF) PO SCH (08:50)
[2020-07-27] MEDS: Remdesivir 5 MG/ML LIQ IV Vial 100 MG in NS 0.9% 250 ml 230 ML IV SCH (21:18)
[2020-07-28 06:53] LABS: ABS Lymphocytes 1.3 10^3/ul (1.0-4.8); ABS Neutrophils 5.2 10^3/ul (1.5-7.7); Eosinophil % 0.1 %; Hematocrit 43 % (42-52); Hemoglobin 14.6 g/dL (14.0-18.0); Lymphocyte % 16.9 %; Mean Corpuscular HGB Conc 34 g/dL (31-36); Mean Corpuscular Hemoglobin 30 pg (27-31); Mean Corpuscular Volume 88 fL (80-94); Mean Platelet Volume 9.7 fL (7.4-10.4); Nucleated Red Blood Cells % 0.1; Platelet Count 176 10^3/uL (150-450); Red Blood Count 4.83 10^6 /uL (4.18-5.48); Red Cell Distribution Width 14 % (10-15); White Blood Count 7.5 10^3/uL (3.5-10.8)
[2020-07-28 06:57] LABS: BUN/Creatinine Ratio 31.7 (8-20); Calcium 8.9 mg/dL (8.6-10.3); EGFR African American 84.5 (>60); EGFR Non-African American 69.8 (>60); Potassium 4.2 mmol/L (3.5-5.0)
[2020-07-28] MEDS: CMCS: Simvastatin 10 mg TAB (NF) PO SCH (08:38)
[2020-07-28] MEDS: IMIPRAMINE 25 MG PO SCH (22:03)
[2020-07-28] MEDS: NALOXEGOL 25 MG PO SCH (22:05)
[2020-07-28] MEDS: Remdesivir 5 MG/ML LIQ IV Vial 100 MG in NS 0.9% 250 ml 230 ML IV SCH (22:06)
[2020-07-29 07:10] LABS: ABS Lymphocytes 1.1 10^3/ul (1.0-4.8); ABS Monocytes 0.8 10^3/ul (0-0.8); ABS Neutrophils 5.1 10^3/ul (1.5-7.7); Eosinophil % 0.1 %; Hematocrit 41 % (42-52); Lymphocyte % 16.1 %; Mean Corpuscular HGB Conc 34 g/dL (31-36); Mean Corpuscular Hemoglobin 30 pg (27-31); Mean Corpuscular Volume 89 fL (80-94); Mean Platelet Volume 9.7 fL (7.4-10.4); Nucleated Red Blood Cells % 0.1; Platelet Count 186 10^3/uL (150-450); Red Blood Count 4.63 10^6 /uL (4.18-5.48); Red Cell Distribution Width 14 % (10-15)
[2020-07-29] MEDS: CMCS: Simvastatin 10 mg TAB (NF) PO SCH (09:41)
[2020-07-29 10:46] VITALS: BP 146/78
== END 2020-07-29 14:00 | disposition home or self-care (01) | DRG 177 ==
LOC: ED 16:33 → MED 20:23
PROVIDERS: ADMIT Internal Medicine; ATTEND Student in an Organized Health Care Education/Training Program